=== PATIENT | male | born 1995 | race African-American/Black ===

== ENCOUNTER 2018-01-03 01:15 | Emergency (ER) | payer OTHER ==
[~2018-01-03] VITALS: Ht 172.7 cm; Wt 95.0 kg
[2018-01-03 02:21] LABS: CLARITY URINE CLEAR (CLEAR); COLOR URINE YELLOW (YELLOW); KETONES URINE NEGATIVE (NEGATIVE); LEUKOCYTE ESTERASE URINE 2+ (NEGATIVE); NITRITE URINE NEGATIVE (NEGATIVE); OCCULT BLOOD URINE TRACE (NEGATIVE); PROTEIN URINE NEGATIVE (NEGATIVE); SPECIFIC GRAVITY URINE 1.023 (1.005-1.030)
[2018-01-03] MEDS ORDERED: CEFTRIAXONE SODIUM 250 MG/VIAL IM ONE (03:15)
[2018-01-03] MEDS ORDERED: AZITHROMYCIN 500 MG TABLET PO ONE (03:15)
[2018-01-03] MEDS ORDERED: CEPHALEXIN 500MG CAPSULE PO ONE (03:30)
[2018-01-03 04:10] VITALS: BP 126/92
== END 2018-01-03 04:32 | disposition home or self-care (01) ==
LOC: ER 01:15
DX: A41.9 Sepsis, unspecified organism (principal); N39.0 Urinary tract infection, site not specified
CPT/HCPCS: 81003; 87040; 87086; 96372; 99284; J0696; Z7610

== ENCOUNTER 2018-04-14 09:32 | Emergency (ER) | payer OTHER ==
[~2018-04-14] VITALS: Ht 175.3 cm; Wt 96.0 kg
[2018-04-14] MEDS ORDERED: KETOROLAC 60MG/2ML VIAL IM ONE (11:15)
[2018-04-14 12:17] VITALS: BP 123/81
== END 2018-04-14 12:19 | disposition home or self-care (01) ==
LOC: ER 09:32
DX: J02.9 Acute pharyngitis, unspecified (principal)
CPT/HCPCS: 87070; 87430; 96372; 99284; J1885; Z7610